=== PATIENT | female | born 1955 | race African-American/Black ===

== ENCOUNTER 2016-10-27 09:20 | Inpatient (IN) | payer MEDICAID ==
[~2016-10-27] VITALS: Ht 154.9 cm; Wt 101.4 kg
[~2016-10-27 09:20] MED LIST: FURO40TA5 PO; INSLAN; INSLIS
[2016-10-27] MEDS ORDERED: SODIUM CHLORIDE 0.9% 1,000 ML IV ONE (10:45)
[2016-10-27] MEDS ORDERED: DIPHENHYDRAMINE 50MG/ML VIAL IV ONE (10:45)
[2016-10-27 13:30] VITALS: BP 179/68
[2016-10-27 13:57] LABS: BASOPHILS % 0.3 % (0.0-2.0); EOSINOPHILS % 2.7 % (0.0-5.0); HEMATOCRIT. 26.9 % (36.0-48.0); HEMOGLOBIN. 8.6 g/dL (12.0-16.0); LYMPHOCYTES % 9.6 % (20.0-50.0); MEAN CORPUSCULAR HEMOGLOBIN 24.2 pg (28.0-32.0); MEAN CORPUSCULAR VOLUME 75.2 fL (81.0-99.0); MEAN PLATELET VOLUME 11.5 fl (7.4-10.4); MONOCYTES % 9.4 % (2.0-8.0); PLATELET 190 x1000/uL (130-400); RED BLOOD CELL COUNT 3.57 mill/uL (4.2-5.4); RED CELL DISTRIBUTION WIDTH 15.4 % (11.6-14.6)
[2016-10-27 13:59] VITALS: BP 179/68
[2016-10-27 14:05] LABS: INR 1.1; PARTIAL THROMBOPLASTIN TIME 32.3 sec (23.4-31.0); PROTHROMBIN TIME 11.7 sec (9.4-11.6)
[2016-10-27 14:12] LABS: CARBON DIOXIDE 22 mEq/L (21-32); CHLORIDE 108 mEq/L (98-107)
[2016-10-27] MEDS ORDERED: LIDOCAINE HCL/PF 2% 20MG/ML 5 ML/VIAL ONE (14:47)
[2016-10-27] MEDS ORDERED: GENTAMICIN SULF 40MG/ML 2ML VIAL ONE (14:48)
[2016-10-27] MEDS ORDERED: BACITRACIN 50,000 UNITS/VIAL ONE (14:48)
[2016-10-27] MEDS ORDERED: NORMAL SALINE 0.9% 10 ML SYR ONE (14:48)
[2016-10-27 16:00] VITALS: BP 186/64
[2016-10-27] MEDS ORDERED: VANCOMYCIN 2,000 MG in DEXT 5% WATER 500 ML IV NR (16:00)
[2016-10-27] MEDS ORDERED: ONDANSETRON HCL 4MG/2ML VIAL IV PRN (16:15)
[2016-10-27] MEDS ORDERED: IPRATROPIUM/ALBUTEROL 0.5-3(2.5)MG/3ML NEB INH PRN (16:15)
[2016-10-27 20:00] VITALS: BP 155/47
[2016-10-27] MEDS ORDERED: DEXTROSE 50% WATER 50ML SYRINGE IV PRN (20:15)
[2016-10-27] MEDS: BLOOD SUGAR DIAGNOSTIC STRIP TEST SCH (22:31)
[2016-10-27] MEDS: INSULIN LISPRO 100 UNITS/ML SUBCUT SCH (22:31)
[2016-10-28] VITALS: BP 158/55
[2016-10-28 04:00] VITALS: BP 164/48
[2016-10-28] MEDS: BLOOD SUGAR DIAGNOSTIC STRIP TEST SCH ×4 (06:29→20:43)
[2016-10-28 06:37] LABS: CLARITY URINE CLEAR (CLEAR); COLOR URINE YELLOW (YELLOW); GLUCOSE URINE NEGATIVE (NEGATIVE); KETONES URINE NEGATIVE (NEGATIVE); LEUKOCYTE ESTERASE URINE NEGATIVE (NEGATIVE); NITRITE URINE NEGATIVE (NEGATIVE); OCCULT BLOOD URINE NEGATIVE (NEGATIVE); PH URINE >=9.0 (4.5-8.0); PROTEIN URINE 3+ (NEGATIVE); SPECIFIC GRAVITY URINE 1.014 (1.005-1.030); UROBILINOGEN URINE 0.2 E.U./dL (0.2-1.0)
[2016-10-28 06:48] LABS: BASOPHILS % 0.6 % (0.0-2.0); EOSINOPHILS % 7.2 % (0.0-5.0); HEMOGLOBIN. 7.9 g/dL (12.0-16.0); LYMPHOCYTES % 13.3 % (20.0-50.0); MEAN CORPUSCULAR HEMOGLOBIN 23.7 pg (28.0-32.0); MEAN CORPUSCULAR VOLUME 75.3 fL (81.0-99.0); MONOCYTES % 8.2 % (2.0-8.0); NEUTROPHILS % 70.7 % (40.0-76.0); PLATELET 178 x1000/uL (130-400); RED BLOOD CELL COUNT 3.32 mill/uL (4.2-5.4); RED CELL DISTRIBUTION WIDTH 15.7 % (11.6-14.6)
[2016-10-28 08:00] VITALS: BP 163/51
[2016-10-28] MEDS: INSULIN LISPRO 100 UNITS/ML SUBCUT SCH ×4 (08:45→21:08)
[2016-10-28] MEDS: ACETAMINOPHEN 325MG TABLET PO PRN (08:46)
[2016-10-28] MEDS ORDERED: FUROSEMIDE 40MG TABLET PO SCH (09:00)
[2016-10-28] MEDS ORDERED: SODIUM POLYSTYRENE SULFONATE 15 G/60 ML BOT PO SCH (10:30)
[2016-10-28] MEDS ORDERED: IOHEXOL-350 100 ML BOTTLE ONE (10:49)
[2016-10-28] MEDS ORDERED: SODIUM CHLORIDE 0.9% 10ML VIAL ONE (10:49)
[2016-10-28] MEDS: AMLODIPINE 5MG TABLET PO SCH ×2 (11:26→21:07)
[2016-10-28 12:00] VITALS: BP 172/45
[2016-10-28] MEDS: HYDRALAZINE HCL 25MG TABLET PO SCH ×2 (14:19→21:07)
[2016-10-28] MEDS: VANCOMYCIN 1 G PREMIX 200 ML IV SCH (14:20)
[2016-10-28 16:00] VITALS: BP 58/95
[2016-10-28] MEDS ORDERED: VANCOMYCIN 1 G PREMIX 200 ML IV SCH (16:00)
[2016-10-28 20:00] VITALS: BP 179/46
[2016-10-29] VITALS (11 sets, daily range): BP systolic 105–168; BP diastolic 31–102
[2016-10-29] MEDS ORDERED: FUROSEMIDE 40MG/4ML VIAL IVP NR (00:30)
[2016-10-29] MEDS: HYDRALAZINE HCL 25MG TABLET PO SCH (06:00)
[2016-10-29] MEDS: VANCOMYCIN 1 G PREMIX 200 ML IV SCH (06:17)
[2016-10-29 07:10] LABS: BASOPHILS % 0.5 % (0.0-2.0); EOSINOPHILS % 3.3 % (0.0-5.0); HEMATOCRIT. 23.6 % (36.0-48.0); HEMOGLOBIN. 7.5 g/dL (12.0-16.0); LYMPHOCYTES % 12.1 % (20.0-50.0); MEAN CORPUSCULAR HEMOGLOBIN 23.8 pg (28.0-32.0); MEAN CORPUSCULAR VOLUME 74.7 fL (81.0-99.0); MEAN PLATELET VOLUME 11.7 fl (7.4-10.4); MONOCYTES % 9.5 % (2.0-8.0); NEUTROPHILS % 74.6 % (40.0-76.0); PLATELET 161 x1000/uL (130-400); RED BLOOD CELL COUNT 3.16 mill/uL (4.2-5.4); RED CELL DISTRIBUTION WIDTH 15.6 % (11.6-14.6)
[2016-10-29] MEDS: BLOOD SUGAR DIAGNOSTIC STRIP TEST SCH ×4 (08:03→21:43)
[2016-10-29] MEDS: INSULIN LISPRO 100 UNITS/ML SUBCUT SCH ×4 (08:04→21:51)
[2016-10-29] MEDS: AMLODIPINE 5MG TABLET PO SCH ×2 (09:00→21:44)
[2016-10-29] MEDS ORDERED: SODIUM POLYSTYRENE SULFONATE 15 G/60 ML BOT PO NR ×2 (10:00→23:00)
[2016-10-29] MEDS ORDERED: DIPHENHYDRAMINE 50MG/ML VIAL IV SCH (10:45)
[2016-10-29] MEDS: ACETAMINOPHEN 325MG TABLET PO PRN (12:30)
[2016-10-29] MEDS: HYDRALAZINE HCL 50MG TABLET PO SCH ×2 (15:23→21:44)
[2016-10-30] VITALS (7 sets, daily range): BP systolic 128–169; BP diastolic 45–59
[2016-10-30] MEDS: BLOOD SUGAR DIAGNOSTIC STRIP TEST SCH ×4 (05:31→21:30)
[2016-10-30] MEDS: INSULIN LISPRO 100 UNITS/ML SUBCUT SCH ×4 (05:32→21:40)
[2016-10-30] MEDS: HYDRALAZINE HCL 50MG TABLET PO SCH ×3 (05:33→22:18)
[2016-10-30] MEDS ORDERED: VANCOMYCIN 1 G PREMIX 200 ML IV SCH (06:00)
[2016-10-30 06:42] LABS: BASOPHILS % 0.5 % (0.0-2.0); HEMATOCRIT. 27.6 % (36.0-48.0); HEMOGLOBIN. 8.9 g/dL (12.0-16.0); MEAN CORPUSCULAR HEMOGLOBIN 24.2 pg (28.0-32.0); MEAN CORPUSCULAR VOLUME 74.9 fL (81.0-99.0); MEAN PLATELET VOLUME 11.8 fl (7.4-10.4); MONOCYTES % 7.8 % (2.0-8.0); NEUTROPHILS % 71.7 % (40.0-76.0); PLATELET 170 x1000/uL (130-400); RED BLOOD CELL COUNT 3.68 mill/uL (4.2-5.4); RED CELL DISTRIBUTION WIDTH 15.7 % (11.6-14.6)
[2016-10-30] MEDS: AMLODIPINE 5MG TABLET PO SCH ×2 (08:36→21:30)
[2016-10-30] MEDS: AZTREONAM 2 GM in DEXT 5% WATER 100 ML IV SCH ×2 (08:37→21:29)
[2016-10-30] MEDS ORDERED: METRONIDAZOLE 500 MG PREMIX 100 ML IV SCH (12:15)
[2016-10-30] MEDS ORDERED: BUPIVACAINE HCL/PF 0.5% (5MG/ML) 10ML ONE (13:23)
[2016-10-30] MEDS ORDERED: GENTAMICIN SULF 40MG/ML 2ML VIAL ONE (13:23)
[2016-10-30] MEDS ORDERED: NORMAL SALINE 0.9% 10 ML SYR ONE (13:23)
[2016-10-30] MEDS ORDERED: LIDOCAINE HCL 1% 20ML VIAL (Pyxis) INJ ONE (13:23)
[2016-10-30] MEDS ORDERED: BACITRACIN 50,000 UNITS/VIAL ONE (13:23)
[2016-10-30] MEDS: CLINDAMYCIN 900 MG in DEXTROSE 5% WATER 50 ML IV SCH ×2 (14:00→22:18)
[2016-10-30] MEDS ORDERED: HYDROMORPHONE HCL/PF 2MG/ML (OR) ONE (14:48)
[2016-10-30] MEDS ORDERED: MIDAZOLAM HCL 5 MG/5 ML VIAL ONE (14:48)
[2016-10-30] MEDS ORDERED: HYDROMORPHONE HCL/PF 2MG/ML CPJ IV PRN (15:00)
[2016-10-30] MEDS ORDERED: LABETALOL HCL 20MG/4ML CARPUJECT IV PRN (15:00)
[2016-10-30] MEDS ORDERED: ONDANSETRON HCL 4MG/2ML VIAL IV PRN (15:00)
[2016-10-30] MEDS ORDERED: MEPERIDINE HCL/PF 25MG/ML CPJ IV PRN (15:00)
[2016-10-30] MEDS: SODIUM CHLORIDE 0.9% 1,000 ML IV SCH (17:31)
[2016-10-30 20:13] LABS: CREATINE KINASE 80 IU/L (26-192)
[2016-10-31] VITALS: BP 146/56
[2016-10-31 04:00] VITALS: BP 140/51
[2016-10-31] MEDS: INSULIN LISPRO 100 UNITS/ML SUBCUT SCH ×4 (05:34→21:00)
[2016-10-31] MEDS: CLINDAMYCIN 900 MG in DEXTROSE 5% WATER 50 ML IV SCH ×3 (05:34→21:42)
[2016-10-31] MEDS: BLOOD SUGAR DIAGNOSTIC STRIP TEST SCH ×4 (05:34→21:42)
[2016-10-31] MEDS: HYDRALAZINE HCL 50MG TABLET PO SCH ×3 (05:34→22:00)
[2016-10-31 06:00] LABS: BASOPHILS % 0.4 % (0.0-2.0); EOSINOPHILS % 7.9 % (0.0-5.0); HEMATOCRIT. 26.5 % (36.0-48.0); HEMOGLOBIN. 8.6 g/dL (12.0-16.0); LYMPHOCYTES % 10.5 % (20.0-50.0); MEAN CORPUSCULAR HEMOGLOBIN 24.2 pg (28.0-32.0); MEAN PLATELET VOLUME 11.8 fl (7.4-10.4); MONOCYTES % 8.6 % (2.0-8.0); NEUTROPHILS % 72.6 % (40.0-76.0); PLATELET 164 x1000/uL (130-400); RED BLOOD CELL COUNT 3.53 mill/uL (4.2-5.4); RED CELL DISTRIBUTION WIDTH 15.6 % (11.6-14.6)
[2016-10-31 06:36] LABS: CLARITY URINE CLOUDY (CLEAR); COLOR URINE YELLOW (YELLOW); GLUCOSE URINE TRACE (NEGATIVE); KETONES URINE NEGATIVE (NEGATIVE); LEUKOCYTE ESTERASE URINE NEGATIVE (NEGATIVE); NITRITE URINE NEGATIVE (NEGATIVE); OCCULT BLOOD URINE NEGATIVE (NEGATIVE); PH URINE 8.5 (4.5-8.0); PROTEIN URINE 3+ (NEGATIVE); SPECIFIC GRAVITY URINE 1.025 (1.005-1.030); UROBILINOGEN URINE 0.2 E.U./dL (0.2-1.0)
[2016-10-31 08:00] VITALS: BP 140/48
[2016-10-31] MEDS: AZTREONAM 2 GM in DEXT 5% WATER 100 ML IV SCH ×2 (08:43→21:42)
[2016-10-31] MEDS: AMLODIPINE 5MG TABLET PO SCH ×2 (08:43→21:00)
[2016-10-31 12:00] VITALS: BP 120/43
[2016-10-31 12:06] LABS: CREATINE KINASE 104 IU/L (26-192)
[2016-10-31 15:43] VITALS: BP 99/31
[2016-10-31] MEDS: FERROUS SULFATE 325MG TABLET PO SCH (17:39)
[2016-10-31] MEDS: SODIUM CHLORIDE 0.9% 1,000 ML IV SCH (17:40)
[2016-10-31 20:00] VITALS: BP 114/57
[2016-10-31] MEDS: ASCORBIC ACID 500 MG TABLET PO SCH (21:42)
[2016-10-31] MEDS ORDERED: SODIUM CHLORIDE 0.9% 1000ML BAG (SEPSIS BOLUS) IV NR (22:45)
[2016-10-31 23:57] LABS: CREATINE KINASE MB FRACTION 3.3 ng/mL (0.5-3.6)
[2016-11-01] VITALS (50 sets, daily range): BP systolic 58–172; BP diastolic 31–77
[2016-11-01] MEDS: DOPAMINE 400MG PREMIX 250 ML IV PRN (00:13)
[2016-11-01 05:17] LABS: BASOPHILS % 0.4 % (0.0-2.0); EOSINOPHILS % 1.9 % (0.0-5.0); HEMOGLOBIN. 8.4 g/dL (12.0-16.0); LYMPHOCYTES % 12.5 % (20.0-50.0); MEAN CORPUSCULAR HEMOGLOBIN 24.1 pg (28.0-32.0); MEAN CORPUSCULAR VOLUME 74.4 fL (81.0-99.0); MEAN PLATELET VOLUME 11.8 fl (7.4-10.4); MONOCYTES % 5.5 % (2.0-8.0); NEUTROPHILS % 79.7 % (40.0-76.0); PLATELET 164 x1000/uL (130-400); RED BLOOD CELL COUNT 3.49 mill/uL (4.2-5.4); RED CELL DISTRIBUTION WIDTH 15.8 % (11.6-14.6)
[2016-11-01] MEDS: SODIUM CHLORIDE 0.9% 1,000 ML IV SCH (05:25)
[2016-11-01 06:08] LABS: CARBON DIOXIDE 18 mEq/L (21-32); CHLORIDE 102 mEq/L (98-107); CREATINE KINASE 88 IU/L (26-192); CREATINE KINASE MB FRACTION 3.3 ng/mL (0.5-3.6); TROPONIN I < 0.02 ng/mL (0.00-0.04)
[2016-11-01] MEDS: CLINDAMYCIN 900 MG in DEXTROSE 5% WATER 50 ML IV SCH ×3 (06:14→22:27)
[2016-11-01] MEDS: HYDRALAZINE HCL 50MG TABLET PO SCH ×3 (06:14→21:10)
[2016-11-01] MEDS: FERROUS SULFATE 325MG TABLET PO SCH ×3 (06:14→18:15)
[2016-11-01] MEDS: INSULIN LISPRO 100 UNITS/ML SUBCUT SCH ×4 (06:14→20:39)
[2016-11-01] MEDS: BLOOD SUGAR DIAGNOSTIC STRIP TEST SCH ×4 (06:14→20:35)
[2016-11-01] MEDS: AMLODIPINE 5MG TABLET PO SCH ×2 (09:00→20:25)
[2016-11-01] MEDS: ASCORBIC ACID 500 MG TABLET PO SCH ×2 (09:04→20:39)
[2016-11-01] MEDS: AZTREONAM 2 GM in DEXT 5% WATER 100 ML IV SCH ×2 (09:04→20:39)
[2016-11-01] MEDS: CITRIC ACID/SODIUM CITRATE SOLN 30ML UDC PO SCH (18:15)
[2016-11-02] VITALS (48 sets, daily range): BP systolic 129–181; BP diastolic 51–97
[2016-11-02 05:23] LABS: BASOPHILS % 0.7 % (0.0-2.0); EOSINOPHILS % 8.5 % (0.0-5.0); HEMATOCRIT. 27.7 % (36.0-48.0); LYMPHOCYTES % 10.9 % (20.0-50.0); MEAN CORPUSCULAR VOLUME 73.5 fL (81.0-99.0); MEAN PLATELET VOLUME 12.2 fl (7.4-10.4); MONOCYTES % 8.2 % (2.0-8.0); NEUTROPHILS % 71.7 % (40.0-76.0); PLATELET 203 x1000/uL (130-400); RED BLOOD CELL COUNT 3.77 mill/uL (4.2-5.4); RED CELL DISTRIBUTION WIDTH 15.8 % (11.6-14.6)
[2016-11-02 05:57] LABS: CARBON DIOXIDE 20 mEq/L (21-32); CHLORIDE 99 mEq/L (98-107)
[2016-11-02] MEDS: HYDRALAZINE HCL 50MG TABLET PO SCH ×3 (05:58→22:00)
[2016-11-02] MEDS: BLOOD SUGAR DIAGNOSTIC STRIP TEST SCH ×4 (05:58→21:27)
[2016-11-02] MEDS: FERROUS SULFATE 325MG TABLET PO SCH ×3 (06:01→16:46)
[2016-11-02] MEDS: CLINDAMYCIN 900 MG in DEXTROSE 5% WATER 50 ML IV SCH ×2 (06:01→13:35)
[2016-11-02] MEDS: INSULIN LISPRO 100 UNITS/ML SUBCUT SCH ×4 (06:03→21:00)
[2016-11-02] MEDS: AMLODIPINE 5MG TABLET PO SCH ×2 (09:00→21:30)
[2016-11-02] MEDS: ASCORBIC ACID 500 MG TABLET PO SCH ×2 (09:42→21:30)
[2016-11-02] MEDS: AZTREONAM 2 GM in DEXT 5% WATER 100 ML IV SCH (09:42)
[2016-11-02] MEDS: DOCUSATE SODIUM 100MG CAPSULE PO PRN (09:42)
[2016-11-02] MEDS: CITRIC ACID/SODIUM CITRATE SOLN 30ML UDC PO SCH ×2 (09:43→16:46)
[2016-11-02] MEDS: DOPAMINE 400MG PREMIX 250 ML IV PRN (13:39)
[2016-11-02] MEDS ORDERED: FUROSEMIDE 40MG/4ML VIAL IVP SCH (14:45)
[2016-11-02] MEDS: LEVOFLOXACIN 750MG PREMIX 150 ML IV SCH (16:08)
[2016-11-03] VITALS (49 sets, daily range): BP systolic 141–191; BP diastolic 51–108
[2016-11-03 05:54] LABS: BASOPHILS % 0.6 % (0.0-2.0); EOSINOPHILS % 6.7 % (0.0-5.0); HEMATOCRIT. 28.8 % (36.0-48.0); HEMOGLOBIN. 9.6 g/dL (12.0-16.0); LYMPHOCYTES % 14.5 % (20.0-50.0); MEAN CORPUSCULAR HEMOGLOBIN 24.1 pg (28.0-32.0); MEAN CORPUSCULAR VOLUME 72.8 fL (81.0-99.0); MEAN PLATELET VOLUME 11.7 fl (7.4-10.4); MONOCYTES % 7.4 % (2.0-8.0); NEUTROPHILS % 70.8 % (40.0-76.0); PLATELET 193 x1000/uL (130-400); RED BLOOD CELL COUNT 3.96 mill/uL (4.2-5.4); RED CELL DISTRIBUTION WIDTH 15.4 % (11.6-14.6)
[2016-11-03] MEDS: BLOOD SUGAR DIAGNOSTIC STRIP TEST SCH ×4 (05:56→20:53)
[2016-11-03] MEDS: FERROUS SULFATE 325MG TABLET PO SCH ×3 (05:56→17:24)
[2016-11-03] MEDS: INSULIN LISPRO 100 UNITS/ML SUBCUT SCH ×4 (05:57→20:53)
[2016-11-03] MEDS: HYDRALAZINE HCL 50MG TABLET PO SCH (05:58)
[2016-11-03] MEDS: AMLODIPINE 5MG TABLET PO SCH (08:55)
[2016-11-03] MEDS: CITRIC ACID/SODIUM CITRATE SOLN 30ML UDC PO SCH ×3 (08:58→17:24)
[2016-11-03] MEDS: ASCORBIC ACID 500 MG TABLET PO SCH ×2 (08:59→20:53)
[2016-11-03] MEDS ORDERED: AMLODIPINE 2.5MG TABLET PO SCH ×3 (11:45→15:15)
[2016-11-03] MEDS: HYDRALAZINE 20MG/ML VIAL IV SCH ×2 (17:24→23:17)
[2016-11-04] VITALS (57 sets, daily range): BP systolic 55–178; BP diastolic 46–87
[2016-11-04] MEDS: HYDRALAZINE 20MG/ML VIAL IV SCH ×4 (05:12→23:50)
[2016-11-04] MEDS: BLOOD SUGAR DIAGNOSTIC STRIP TEST SCH ×4 (06:15→21:00)
[2016-11-04] MEDS: INSULIN LISPRO 100 UNITS/ML SUBCUT SCH ×4 (06:16→20:59)
[2016-11-04] MEDS: FERROUS SULFATE 325MG TABLET PO SCH ×3 (06:19→17:02)
[2016-11-04] MEDS: ONDANSETRON HCL 4MG/2ML VIAL IV PRN ×4 (06:25→23:57)
[2016-11-04 06:29] LABS: HEMATOCRIT. 28.2 % (36.0-48.0); HEMOGLOBIN. 9.3 g/dL (12.0-16.0); MEAN CORPUSCULAR HEMOGLOBIN 24.2 pg (28.0-32.0); MEAN CORPUSCULAR VOLUME 73.2 fL (81.0-99.0); MEAN PLATELET VOLUME 11.8 fl (7.4-10.4); PLATELET 218 x1000/uL (130-400); RED BLOOD CELL COUNT 3.85 mill/uL (4.2-5.4); RED CELL DISTRIBUTION WIDTH 15.8 % (11.6-14.6)
[2016-11-04 07:00] LABS: PHOSPHORUS 5.4 mg/dL (2.5-4.9)
[2016-11-04] MEDS: ASCORBIC ACID 500 MG TABLET PO SCH ×2 (09:02→20:58)
[2016-11-04] MEDS: CITRIC ACID/SODIUM CITRATE SOLN 30ML UDC PO SCH ×2 (09:02→17:02)
[2016-11-04 10:22] LABS: PLATELET ESTIMATE NORMAL
[2016-11-04] MEDS: LEVOFLOXACIN 750MG PREMIX 150 ML IV SCH (17:00)
[2016-11-04] MEDS: AMLODIPINE 5MG TABLET PO SCH (20:58)
[2016-11-05] VITALS (92 sets, daily range): BP systolic 135–189; BP diastolic 47–111
[2016-11-05] MEDS: HYDRALAZINE 20MG/ML VIAL IV SCH (05:37)
[2016-11-05 05:52] LABS: BASOPHILS % 0.9 % (0.0-2.0); EOSINOPHILS % 4.9 % (0.0-5.0); HEMATOCRIT. 27.6 % (36.0-48.0); HEMOGLOBIN. 9.1 g/dL (12.0-16.0); LYMPHOCYTES % 18.1 % (20.0-50.0); MEAN CORPUSCULAR HEMOGLOBIN 24.3 pg (28.0-32.0); MEAN PLATELET VOLUME 11.6 fl (7.4-10.4); MONOCYTES % 9.4 % (2.0-8.0); NEUTROPHILS % 66.7 % (40.0-76.0); PLATELET 203 x1000/uL (130-400); RED BLOOD CELL COUNT 3.73 mill/uL (4.2-5.4); RED CELL DISTRIBUTION WIDTH 15.7 % (11.6-14.6)
[2016-11-05] MEDS: BLOOD SUGAR DIAGNOSTIC STRIP TEST SCH ×4 (06:03→20:53)
[2016-11-05] MEDS: ONDANSETRON HCL 4MG/2ML VIAL IV PRN (06:05)
[2016-11-05] MEDS: FERROUS SULFATE 325MG TABLET PO SCH ×3 (06:05→17:20)
[2016-11-05] MEDS: INSULIN LISPRO 100 UNITS/ML SUBCUT SCH ×4 (06:06→20:53)
[2016-11-05] MEDS: ASCORBIC ACID 500 MG TABLET PO SCH ×2 (08:29→20:51)
[2016-11-05] MEDS: CITRIC ACID/SODIUM CITRATE SOLN 30ML UDC PO SCH ×2 (08:29→17:20)
[2016-11-05] MEDS: AMLODIPINE 5MG TABLET PO SCH ×2 (08:29→17:21)
[2016-11-05] MEDS ORDERED: HYDRALAZINE HCL 50MG TABLET PO PRN (08:45)
[2016-11-05 09:07] LABS: COMPLEMENT C3 155 mg/dL (82-167)
[2016-11-05] MEDS: LOSARTAN POTASSIUM 50 MG TABLET PO SCH ×2 (11:55→20:51)
[2016-11-05 17:13] LABS: ANTI-NUCLEAR ANTIBODIES DIRECT Negative (Negative)
[2016-11-05] MEDS ORDERED: HYDRALAZINE HCL 50MG TABLET PO NR (18:45)
[2016-11-05] MEDS ORDERED: NITROGLYCERIN OINT 1GM/INCH UDPKT TD NR (18:45)
[2016-11-05] MEDS: HYDRALAZINE HCL 50MG TABLET PO SCH (22:00)
[2016-11-05] MEDS: NITROGLYCERIN OINT 1GM/INCH UDPKT TD SCH (22:00)
[2016-11-06] VITALS (41 sets, daily range): BP systolic 123–178; BP diastolic 53–80
[2016-11-06 00:04] LABS: FOLIC ACID (FOLATE) SERUM 8.5 ng/mL (>5.38)
[2016-11-06 00:15] LABS: VITAMIN B12 SERUM 1424 pg/mL (211-911)
[2016-11-06 05:25] LABS: BASOPHILS % 0.8 % (0.0-2.0); EOSINOPHILS % 11.1 % (0.0-5.0); HEMATOCRIT. 26.8 % (36.0-48.0); HEMOGLOBIN. 8.8 g/dL (12.0-16.0); LYMPHOCYTES % 19.8 % (20.0-50.0); MEAN CORPUSCULAR HEMOGLOBIN 24.4 pg (28.0-32.0); MEAN CORPUSCULAR VOLUME 74.4 fL (81.0-99.0); MEAN PLATELET VOLUME 11.4 fl (7.4-10.4); NEUTROPHILS % 58.3 % (40.0-76.0); PLATELET 198 x1000/uL (130-400); RED BLOOD CELL COUNT 3.61 mill/uL (4.2-5.4)
[2016-11-06 05:41] LABS: PHOSPHORUS 2.8 mg/dL (2.5-4.9)
[2016-11-06] MEDS: HYDRALAZINE HCL 50MG TABLET PO SCH ×3 (06:06→21:50)
[2016-11-06] MEDS: FERROUS SULFATE 325MG TABLET PO SCH ×3 (06:06→17:22)
[2016-11-06] MEDS: BLOOD SUGAR DIAGNOSTIC STRIP TEST SCH ×4 (06:07→21:50)
[2016-11-06] MEDS: NITROGLYCERIN OINT 1GM/INCH UDPKT TD SCH ×3 (06:07→21:50)
[2016-11-06] MEDS: INSULIN LISPRO 100 UNITS/ML SUBCUT SCH ×4 (06:08→21:47)
[2016-11-06] MEDS: LOSARTAN POTASSIUM 50 MG TABLET PO SCH ×2 (09:28→21:50)
[2016-11-06] MEDS: CITRIC ACID/SODIUM CITRATE SOLN 30ML UDC PO SCH ×2 (09:28→17:21)
[2016-11-06] MEDS: AMLODIPINE 5MG TABLET PO SCH (09:28)
[2016-11-06] MEDS: ASCORBIC ACID 500 MG TABLET PO SCH ×2 (09:28→21:50)
[2016-11-06] MEDS: NIFEDIPINE XL 60MG TAB PO SCH (10:52)
[2016-11-06] MEDS: LEVOFLOXACIN 750MG PREMIX 150 ML IV SCH (17:32)
[2016-11-07] VITALS (12 sets, daily range): BP systolic 132–154; BP diastolic 53–73
[2016-11-07] MEDS: HYDRALAZINE HCL 50MG TABLET PO SCH ×3 (06:10→21:25)
[2016-11-07] MEDS: INSULIN LISPRO 100 UNITS/ML SUBCUT SCH ×2 (06:11→20:30)
[2016-11-07] MEDS: BLOOD SUGAR DIAGNOSTIC STRIP TEST SCH ×2 (06:11→20:26)
[2016-11-07] MEDS: NITROGLYCERIN OINT 1GM/INCH UDPKT TD SCH ×3 (06:11→21:26)
[2016-11-07 07:29] LABS: BASOPHILS % 0.7 % (0.0-2.0); EOSINOPHILS % 12.5 % (0.0-5.0); HEMATOCRIT. 24.1 % (36.0-48.0); HEMOGLOBIN. 7.8 g/dL (12.0-16.0); LYMPHOCYTES % 21.6 % (20.0-50.0); MEAN CORPUSCULAR HEMOGLOBIN 24.4 pg (28.0-32.0); MEAN CORPUSCULAR VOLUME 75.4 fL (81.0-99.0); MEAN PLATELET VOLUME 11.6 fl (7.4-10.4); MONOCYTES % 8.1 % (2.0-8.0); NEUTROPHILS % 57.1 % (40.0-76.0); PLATELET 165 x1000/uL (130-400); RED CELL DISTRIBUTION WIDTH 16.2 % (11.6-14.6)
[2016-11-07] MEDS: ASCORBIC ACID 500 MG TABLET PO SCH ×2 (08:10→20:30)
[2016-11-07] MEDS: LOSARTAN POTASSIUM 50 MG TABLET PO SCH ×2 (08:10→20:30)
[2016-11-07] MEDS: NIFEDIPINE XL 60MG TAB PO SCH (08:11)
[2016-11-07] MEDS: FERROUS SULFATE 325MG TABLET PO SCH ×3 (08:11→17:58)
[2016-11-07] MEDS: CITRIC ACID/SODIUM CITRATE SOLN 30ML UDC PO SCH ×2 (08:11→17:58)
[2016-11-07] MEDS ORDERED: DEXT 5%/0.45% NACL 500ML 500 ML IV SCH (10:00)
[2016-11-07] MEDS ORDERED: DEXT 5%/0.45% NACL 1000ML 1,000 ML IV SCH (10:15)
[2016-11-07 11:34] LABS: HEMATOCRIT 25.3 % (36.0-48.0); HEMOGLOBIN 8.2 g/dL (12.0-16.0)
[2016-11-07] MEDS ORDERED: INSULIN LISPRO 100 UNITS/ML SUBCUT SCH (12:00)
[2016-11-07] MEDS ORDERED: BLOOD SUGAR DIAGNOSTIC STRIP TEST SCH (12:00)
[2016-11-07] MEDS ORDERED: DEXTROSE 50% WATER 50ML SYRINGE IV PRN (18:00)
[2016-11-08] VITALS (12 sets, daily range): BP systolic 119–162; BP diastolic 31–80
[2016-11-08] MEDS: BLOOD SUGAR DIAGNOSTIC STRIP TEST SCH ×4 (06:09→21:00)
[2016-11-08] MEDS: HYDRALAZINE HCL 50MG TABLET PO SCH ×3 (06:10→22:03)
[2016-11-08] MEDS: NITROGLYCERIN OINT 1GM/INCH UDPKT TD SCH ×3 (06:10→22:03)
[2016-11-08 07:51] LABS: BASOPHILS % 0.5 % (0.0-2.0); EOSINOPHILS % 10.7 % (0.0-5.0); HEMATOCRIT. 24.6 % (36.0-48.0); HEMOGLOBIN. 7.9 g/dL (12.0-16.0); LYMPHOCYTES % 24.7 % (20.0-50.0); MEAN CORPUSCULAR HEMOGLOBIN 24.3 pg (28.0-32.0); MEAN CORPUSCULAR VOLUME 75.4 fL (81.0-99.0); MEAN PLATELET VOLUME 11.5 fl (7.4-10.4); MONOCYTES % 7.7 % (2.0-8.0); NEUTROPHILS % 56.4 % (40.0-76.0); PLATELET 159 x1000/uL (130-400); RED BLOOD CELL COUNT 3.26 mill/uL (4.2-5.4); RED CELL DISTRIBUTION WIDTH 16.1 % (11.6-14.6)
[2016-11-08] MEDS: INSULIN LISPRO 100 UNITS/ML SUBCUT SCH ×4 (07:57→21:00)
[2016-11-08] MEDS: FERROUS SULFATE 325MG TABLET PO SCH ×3 (07:57→17:35)
[2016-11-08] MEDS: LOSARTAN POTASSIUM 50 MG TABLET PO SCH ×2 (08:02→22:03)
[2016-11-08] MEDS: NIFEDIPINE XL 60MG TAB PO SCH (08:02)
[2016-11-08] MEDS: ASCORBIC ACID 500 MG TABLET PO SCH ×2 (08:02→22:04)
[2016-11-08] MEDS: CITRIC ACID/SODIUM CITRATE SOLN 30ML UDC PO SCH ×2 (08:02→17:35)
[2016-11-08] MEDS ORDERED: LEVOFLOXACIN 500MG TABLET PO SCH (11:00)
[2016-11-08] MEDS: DOCUSATE SODIUM 100MG CAPSULE PO PRN (17:35)
[2016-11-09] VITALS (12 sets, daily range): BP systolic 128–150; BP diastolic 58–72
[2016-11-09] MEDS: BLOOD SUGAR DIAGNOSTIC STRIP TEST SCH ×4 (06:13→21:00)
[2016-11-09] MEDS: NITROGLYCERIN OINT 1GM/INCH UDPKT TD SCH ×3 (06:13→21:58)
[2016-11-09] MEDS: HYDRALAZINE HCL 50MG TABLET PO SCH ×3 (06:13→21:58)
[2016-11-09 07:29] LABS: BASOPHILS % 0.5 % (0.0-2.0); EOSINOPHILS % 11.7 % (0.0-5.0); HEMOGLOBIN. 7.9 g/dL (12.0-16.0); LYMPHOCYTES % 22.3 % (20.0-50.0); MEAN CORPUSCULAR HEMOGLOBIN 24.5 pg (28.0-32.0); MEAN CORPUSCULAR VOLUME 74.7 fL (81.0-99.0); MEAN PLATELET VOLUME 11.4 fl (7.4-10.4); NEUTROPHILS % 58.5 % (40.0-76.0); PLATELET 150 x1000/uL (130-400); RED BLOOD CELL COUNT 3.21 mill/uL (4.2-5.4); RED CELL DISTRIBUTION WIDTH 16.1 % (11.6-14.6)
[2016-11-09] MEDS: FERROUS SULFATE 325MG TABLET PO SCH ×3 (07:50→18:27)
[2016-11-09] MEDS: INSULIN LISPRO 100 UNITS/ML SUBCUT SCH ×4 (07:51→21:01)
[2016-11-09] MEDS: ASCORBIC ACID 500 MG TABLET PO SCH ×2 (08:02→21:00)
[2016-11-09] MEDS: CITRIC ACID/SODIUM CITRATE SOLN 30ML UDC PO SCH (08:02)
[2016-11-09] MEDS: LOSARTAN POTASSIUM 50 MG TABLET PO SCH ×2 (08:02→21:00)
[2016-11-09] MEDS: NIFEDIPINE XL 60MG TAB PO SCH (08:02)
[2016-11-09] MEDS: DOCUSATE SODIUM 100MG CAPSULE PO PRN (21:08)
[2016-11-10] VITALS (11 sets, daily range): BP systolic 59–161; BP diastolic 54–79
[2016-11-10] MEDS: NITROGLYCERIN OINT 1GM/INCH UDPKT TD SCH ×2 (05:53→13:10)
[2016-11-10] MEDS: HYDRALAZINE HCL 50MG TABLET PO SCH ×2 (05:54→13:11)
[2016-11-10 06:51] LABS: BASOPHILS % 0.4 % (0.0-2.0); EOSINOPHILS % 12.6 % (0.0-5.0); HEMATOCRIT. 24.8 % (36.0-48.0); HEMOGLOBIN. 8.2 g/dL (12.0-16.0); LYMPHOCYTES % 19.6 % (20.0-50.0); MEAN CORPUSCULAR HEMOGLOBIN 24.6 pg (28.0-32.0); MEAN CORPUSCULAR VOLUME 74.7 fL (81.0-99.0); MEAN PLATELET VOLUME 11.5 fl (7.4-10.4); MONOCYTES % 6.1 % (2.0-8.0); NEUTROPHILS % 61.3 % (40.0-76.0); PLATELET 147 x1000/uL (130-400); RED BLOOD CELL COUNT 3.32 mill/uL (4.2-5.4); RED CELL DISTRIBUTION WIDTH 16.3 % (11.6-14.6)
[2016-11-10] MEDS: BLOOD SUGAR DIAGNOSTIC STRIP TEST SCH ×3 (06:52→16:55)
[2016-11-10 07:10] LABS: PHOSPHORUS 2.9 mg/dL (2.5-4.9)
[2016-11-10] MEDS: INSULIN LISPRO 100 UNITS/ML SUBCUT SCH ×3 (07:52→18:07)
[2016-11-10] MEDS: FERROUS SULFATE 325MG TABLET PO SCH ×3 (07:52→16:55)
[2016-11-10] MEDS: ASCORBIC ACID 500 MG TABLET PO SCH (08:12)
[2016-11-10] MEDS: LOSARTAN POTASSIUM 50 MG TABLET PO SCH (08:12)
[2016-11-10] MEDS: NIFEDIPINE XL 60MG TAB PO SCH (08:12)
[2016-11-10] MEDS: DOCUSATE SODIUM 100MG CAPSULE PO PRN (08:12)
[2016-11-10] MEDS ORDERED: LEVOFLOXACIN 500MG TABLET PO SCH (11:00)
[2016-11-10 13:09] LABS: HGB A 98.2 % (94.0-98.0); HGB A2 1.8 % (0.7-3.1); HGB SOLUBILITY Negative (Negative)
[2016-11-10] MEDS ORDERED: NIFEDIPINE XL 60MG TAB PO SCH (21:00)
== END 2016-11-10 20:10 | disposition home or self-care (01) | DRG 710 ==
LOC: ER 10:38 → 7WST 11:03 → ENRESERV 12:13 → MICUNO 10-31 23:29 → 3WST 11-06 16:45
PROVIDERS: ADMIT Internal Medicine; ATTEND Internal Medicine
PROC: 0QBL0ZZ Excision of Right Tarsal, Open Approach (ICD-10-PCS; principal; 2016-11-01)
PROC: 02H633Z Insertion of Infusion Device into Right Atrium, Percutaneous Approach (ICD-10-PCS; 2016-11-01)
PROC: B244ZZZ Ultrasonography of Right Heart (ICD-10-PCS; 2016-11-01)
PROC: 30233N1 Transfusion of Nonautologous Red Blood Cells into Peripheral Vein, Percutaneous Approach (ICD-10-PCS; 2016-11-01)
DX: A41.9 Sepsis, unspecified organism (principal); N17.0 Acute kidney failure with tubular necrosis; E43 Unspecified severe protein-calorie malnutrition; E11.52 Type 2 diabetes mellitus with diabetic peripheral angiopathy with gangrene; D68.9 Coagulation defect, unspecified; M86.171 Other acute osteomyelitis, right ankle and foot; I13.0 Hypertensive heart and chronic kidney disease with heart failure and stage 1 through stage 4 chronic kidney disease, or unspecified chronic kidney disease; I50.32 Chronic diastolic (congestive) heart failure; E11.22 Type 2 diabetes mellitus with diabetic chronic kidney disease; E11.621 Type 2 diabetes mellitus with foot ulcer; E11.69 Type 2 diabetes mellitus with other specified complication; L97.414 Non-pressure chronic ulcer of right heel and midfoot with necrosis of bone; E87.5 Hyperkalemia; D50.9 Iron deficiency anemia, unspecified; D63.8 Anemia in other chronic diseases classified elsewhere; L02.611 Cutaneous abscess of right foot; E66.9 Obesity, unspecified; D63.1 Anemia in chronic kidney disease; K59.00 Constipation, unspecified; I49.5 Sick sinus syndrome; E78.00 Pure hypercholesterolemia, unspecified; E78.5 Hyperlipidemia, unspecified; I27.2 Other secondary pulmonary hypertension; E11.51 Type 2 diabetes mellitus with diabetic peripheral angiopathy without gangrene; M86.8X7 Other osteomyelitis, ankle and foot; L97.419 Non-pressure chronic ulcer of right heel and midfoot with unspecified severity; N18.9 Chronic kidney disease, unspecified; Z99.3 Dependence on wheelchair; Z79.4 Long term (current) use of insulin; Z88.2 Allergy status to sulfonamides; Z68.41 Body mass index [BMI] 40.0-44.9, adult; Z88.0 Allergy status to penicillin
CPT/HCPCS: 36415; 36569; 71010; 73650; 73721; 75635; 76770; 76937; 80048; 80053; 80202; 81001; 82270; 82550; 82553; 82575; 82607; 82728; 82746; 82962; 83021; 83540; 83550; 83615; 83735; 84100; 84145; 84443; 84484; 85014; 85018; 85025; 85044; 85379; 85610; 85651; 85660; 85730; 85732; 86038; 86160; 86850; 86900; 86920; 87040; 87070; 87077; 87086; 87186; 87205; 88304; 93005; 93306; 93923; 93970; 96361; 96374; 97022; 97162; 99285; A4216; C1725; J0360; J1170; J1200; J1265; J1580; J1815; J1940; J1956; J2250; J2405; J3370; J3490; J7030; J7040; J7050; J7060; P9016; Q9967; A4315

== ENCOUNTER 2019-05-08 18:20 | Inpatient (IN) | payer MEDICAID ==
[~2019-05-08] VITALS: Ht 154.9 cm; Wt 80.3 kg
[~2019-05-08 18:20] MED LIST changes: -INSLIS
[2019-05-09 00:58] LABS: CHLORIDE 114 mEq/L (98-107)
[2019-05-09 01:02] LABS: HEMATOCRIT. 33.9 % (36.0-48.0); HEMOGLOBIN. 10.9 g/dL (12.0-16.0); MEAN CORPUSCULAR HEMOGLOBIN 26.8 pg (28.0-32.0); MEAN CORPUSCULAR VOLUME 83.3 fL (81.0-99.0); PLATELET 126 x1000/uL (130-400); RED BLOOD CELL COUNT 4.07 mill/uL (4.2-5.4); RED CELL DISTRIBUTION WIDTH 18.7 % (11.6-14.6)
[2019-05-09 01:04] LABS: PARTIAL THROMBOPLASTIN TIME 26.2 sec (23.4-31.0); PROTHROMBIN TIME 10.4 sec (9.6-11.0)
[2019-05-09 01:40] LABS: PLATELET ESTIMATE SLIGHTLY DECREASED
[2019-05-09] MEDS ORDERED: INSULIN REGULAR (HUMULIN R) 300UNITS/3ML IV ONE (02:00)
[2019-05-09] MEDS ORDERED: ALBUTEROL (0.083%) 2.5MG/3ML NEB HHN ONE (02:00)
[2019-05-09] MEDS ORDERED: CALCIUM CHLORIDE 1GM/10ML SYR IV ONE (02:00)
[2019-05-09] MEDS ORDERED: SODIUM BICARBONATE 8.4% 1 MEQ/ML 50ML SYR IV ONE (02:00)
[2019-05-09] MEDS ORDERED: DEXTROSE 50% WATER 50ML SYRINGE IV ONE (02:00)
[2019-05-09] MEDS ORDERED: FUROSEMIDE 20MG/2ML VIAL IVP ONE (02:00)
[2019-05-09] MEDS ORDERED: CLONIDINE 0.1MG TABLET PO NR (02:00)
[2019-05-09 09:57] LABS: CHLORIDE 117 mEq/L (98-107)
[2019-05-09] MEDS ORDERED: HYDROCODONE/ACETAMINOPHEN 10/325MG TABLET PO PRN (19:30)
[2019-05-09] MEDS ORDERED: ACETAMINOPHEN 325MG TABLET PO PRN (19:30)
[2019-05-09] MEDS: AMLODIPINE 5MG TABLET PO SCH (20:22)
[2019-05-09 22:30] VITALS: BP 210/69
[2019-05-09] MEDS: CLONIDINE 0.1MG TABLET PO PRN (23:05)
[2019-05-10] VITALS: BP 157/44
[2019-05-10] MEDS ORDERED: FERR325T6 PO (01:38)
[2019-05-10] MEDS ORDERED: ALLO300T2 PO (01:38)
[2019-05-10] MEDS ORDERED: ASPI-1497 PO (01:38)
[2019-05-10] MEDS ORDERED: ATOR40TA70 PO (01:38)
[2019-05-10] MEDS ORDERED: CALC667C PO (01:38)
[2019-05-10] MEDS ORDERED: HYDR100T26 PO (01:38)
[2019-05-10] MEDS ORDERED: GABA-529 PO (01:38)
[2019-05-10 04:00] VITALS: BP 147/47
[2019-05-10 07:07] LABS: HEMATOCRIT. 27.9 % (36.0-48.0); HEMOGLOBIN. 9.1 g/dL (12.0-16.0); MEAN CORPUSCULAR HEMOGLOBIN 26.9 pg (28.0-32.0); MEAN CORPUSCULAR VOLUME 82.8 fL (81.0-99.0); MEAN PLATELET VOLUME 12.6 fl (7.4-10.4); PLATELET 111 x1000/uL (130-400); RED BLOOD CELL COUNT 3.36 mill/uL (4.2-5.4); RED CELL DISTRIBUTION WIDTH 18.1 % (11.6-14.6)
[2019-05-10 08:00] VITALS: BP 148/45
[2019-05-10] MEDS: AMLODIPINE 5MG TABLET PO SCH (08:40)
[2019-05-10] MEDS ORDERED: ENOXAPARIN 40MG/0.4ML SYR SUBCUT SCH (09:00)
[2019-05-10] MEDS ORDERED: SODIUM POLYSTYRENE SULFONATE 15 G/60 ML BOT PO NR (10:00)
[2019-05-10 10:06] LABS: T4 FREE 0.99 ng/dL (0.76-1.46)
[2019-05-10 11:29] LABS: CREATINE KINASE 181 IU/L (26-192)
[2019-05-10 12:00] VITALS: BP 179/68
[2019-05-10] MEDS: CLONIDINE 0.1MG TABLET PO PRN ×2 (12:44→21:37)
[2019-05-10 14:37] LABS: PLATELET ESTIMATE DECREASED
[2019-05-10 16:00] VITALS: BP 137/46
[2019-05-10 16:04] LABS: CREATINE KINASE 219 IU/L (26-192)
[2019-05-10 16:05] LABS: CREATINE KINASE MB FRACTION 3.6 ng/mL (0.5-3.6)
[2019-05-10 20:00] VITALS: BP 174/47
[2019-05-11] VITALS: BP 147/46
[2019-05-11 01:24] LABS: CREATINE KINASE 169 IU/L (26-192); CREATINE KINASE MB FRACTION 2.6 ng/mL (0.5-3.6)
[2019-05-11 04:00] VITALS: BP 177/54
[2019-05-11] MEDS: CLONIDINE 0.1MG TABLET PO PRN ×2 (06:03→13:37)
[2019-05-11 08:00] VITALS: BP 147/51
[2019-05-11] MEDS: AMLODIPINE 5MG TABLET PO SCH (08:41)
[2019-05-11] MEDS: ENOXAPARIN 30MG/0.3ML SYR SUBCUT SCH (08:41)
[2019-05-11 09:22] LABS: HEMATOCRIT. 28.4 % (36.0-48.0); HEMOGLOBIN. 9.2 g/dL (12.0-16.0); MEAN CORPUSCULAR HEMOGLOBIN 27.1 pg (28.0-32.0); MEAN CORPUSCULAR VOLUME 83.5 fL (81.0-99.0); RED CELL DISTRIBUTION WIDTH 18.2 % (11.6-14.6)
[2019-05-11 09:43] LABS: CHLORIDE 113 mEq/L (98-107); CREATINE KINASE 151 IU/L (26-192)
[2019-05-11 09:45] LABS: CREATINE KINASE MB FRACTION 2.2 ng/mL (0.5-3.6)
[2019-05-11] MEDS ORDERED: DEXTROSE 50% WATER 50ML SYRINGE IV PRN (11:45)
[2019-05-11 12:00] VITALS: BP 172/54
[2019-05-11] MEDS: BLOOD SUGAR DIAGNOSTIC STRIP TEST SCH ×3 (12:16→20:43)
[2019-05-11] MEDS: INSULIN LISPRO 100 UNITS/ML SUBCUT SCH ×3 (12:39→21:26)
[2019-05-11 13:18] LABS: PLATELET 102 x1000/uL (130-400); PLATELET ESTIMATE SLIGHTLY DECREASED
[2019-05-11 13:39] LABS: CLARITY URINE CLEAR (CLEAR); COLOR URINE YELLOW (YELLOW); KETONES URINE NEGATIVE (NEGATIVE); LEUKOCYTE ESTERASE URINE NEGATIVE (NEGATIVE); NITRITE URINE NEGATIVE (NEGATIVE); OCCULT BLOOD URINE NEGATIVE (NEGATIVE); PH URINE 5.5 (4.5-8.0); PROTEIN URINE 2+ (NEGATIVE); UROBILINOGEN URINE 0.2 E.U./dL (0.2-1.0)
[2019-05-11] MEDS: LACTATED RINGERS 1,000 ML IV SCH (15:14)
[2019-05-11 16:00] VITALS: BP 150/57
[2019-05-11 17:09] LABS: ANTI-NUCLEAR ANTIBODIES DIRECT Negative (Negative)
[2019-05-11 20:00] VITALS: BP 161/43
[2019-05-12] VITALS: BP 167/47
[2019-05-12] MEDS: LACTATED RINGERS 1,000 ML IV SCH (01:20)
[2019-05-12 04:00] VITALS: BP 168/51
[2019-05-12 05:55] LABS: BASOPHILS % 0.8 % (0.0-2.0); HEMATOCRIT. 27.9 % (36.0-48.0); HEMOGLOBIN. 9.1 g/dL (12.0-16.0); LYMPHOCYTES % 14.2 % (20.0-50.0); MEAN CORPUSCULAR HEMOGLOBIN 27.1 pg (28.0-32.0); MEAN CORPUSCULAR VOLUME 82.8 fL (81.0-99.0); MEAN PLATELET VOLUME 11.6 fl (7.4-10.4); MONOCYTES % 14.1 % (2.0-8.0); NEUTROPHILS % 59.9 % (40.0-76.0); PLATELET 108 x1000/uL (130-400); RED BLOOD CELL COUNT 3.37 mill/uL (4.2-5.4); RED CELL DISTRIBUTION WIDTH 18.4 % (11.6-14.6)
[2019-05-12] MEDS: BLOOD SUGAR DIAGNOSTIC STRIP TEST SCH ×4 (06:37→21:00)
[2019-05-12] MEDS: INSULIN LISPRO 100 UNITS/ML SUBCUT SCH ×4 (07:50→21:49)
[2019-05-12 08:00] VITALS: BP 171/53
[2019-05-12] MEDS: AMLODIPINE 5MG TABLET PO SCH (09:10)
[2019-05-12] MEDS: ENOXAPARIN 30MG/0.3ML SYR SUBCUT SCH (09:46)
[2019-05-12 12:00] VITALS: BP 146/50
[2019-05-12] MEDS ORDERED: SODIUM POLYSTYRENE SULFONATE 15 G/60 ML BOT PO NR (12:00)
[2019-05-12 16:00] VITALS: BP 177/76
[2019-05-12] MEDS: CLONIDINE 0.1MG TABLET PO PRN (16:14)
[2019-05-12 20:00] VITALS: BP 188/67
[2019-05-13] VITALS: BP 172/60
[2019-05-13] MEDS: CLONIDINE 0.1MG TABLET PO PRN (00:35)
[2019-05-13 04:00] VITALS: BP 147/42
[2019-05-13] MEDS: BLOOD SUGAR DIAGNOSTIC STRIP TEST SCH (06:39)
[2019-05-13 08:00] VITALS: BP_SYST 141; BP_SYST 147; BP_DIAS 50
[2019-05-13] MEDS: AMLODIPINE 5MG TABLET PO SCH (09:24)
[2019-05-13] MEDS: ENOXAPARIN 30MG/0.3ML SYR SUBCUT SCH (09:25)
[2019-05-13] MEDS: INSULIN LISPRO 100 UNITS/ML SUBCUT SCH (09:26)
[2019-05-13 10:14] LABS: HEMATOCRIT. 26.7 % (36.0-48.0); HEMOGLOBIN. 8.7 g/dL (12.0-16.0); MEAN CORPUSCULAR HEMOGLOBIN 27.1 pg (28.0-32.0); MEAN CORPUSCULAR VOLUME 83.3 fL (81.0-99.0); RED CELL DISTRIBUTION WIDTH 18.1 % (11.6-14.6)
[2019-05-13] MEDS ORDERED: SODIUM CHLORIDE 0.45% 1,000 ML IV SCH (11:00)
[2019-05-13 11:04] LABS: PLATELET ESTIMATE DECREASED
[2019-05-13 11:05] LABS: MEAN PLATELET VOLUME 12.1 fl (7.4-10.4); PLATELET 97 x1000/uL (130-400)
[2019-05-13 14:23] VITALS: BP 142/88
== END 2019-05-13 16:00 | disposition home or self-care (01) | DRG 469 ==
LOC: ER 18:20 → 6WST 05-09 02:26 → ENRESERV 05-09 20:03
PROVIDERS: ADMIT Internal Medicine; ATTEND Internal Medicine
PROC: 02HV33Z Insertion of Infusion Device into Superior Vena Cava, Percutaneous Approach (ICD-10-PCS; principal; 2019-05-12)
PROC: B518ZZA Fluoroscopy of Superior Vena Cava, Guidance (ICD-10-PCS; 2019-05-12)
PROC: B548ZZA Ultrasonography of Superior Vena Cava, Guidance (ICD-10-PCS; 2019-05-12)
DX: N17.9 Acute kidney failure, unspecified (principal); E11.51 Type 2 diabetes mellitus with diabetic peripheral angiopathy without gangrene; I50.9 Heart failure, unspecified; I13.0 Hypertensive heart and chronic kidney disease with heart failure and stage 1 through stage 4 chronic kidney disease, or unspecified chronic kidney disease; E87.5 Hyperkalemia; N18.9 Chronic kidney disease, unspecified; I70.203 Unspecified atherosclerosis of native arteries of extremities, bilateral legs; D64.9 Anemia, unspecified; E78.5 Hyperlipidemia, unspecified; Z95.0 Presence of cardiac pacemaker; Z88.0 Allergy status to penicillin; Z88.2 Allergy status to sulfonamides
CPT/HCPCS: 36415; 36573; 71045; 75635; 76770; 76937; 80048; 80053; 80061; 81003; 82550; 82553; 82962; 83036; 83880; 84439; 84443; 84484; 85025; 85379; 86038; 86160; 93005; 93306; 93923; 93970; 94644; 99285; C1725; C1769; J1650; J1815; J1940; J3490; J7120